=== PATIENT | female | born 1955 | race Caucasian/White ===

== ENCOUNTER 2019-09-28 02:34 | Observation (INO) ==
[2019-09-28] MEDS ORDERED: Naloxone 0.4 MG/ML INJ IVP PRN (04:35)
[2019-09-28] MEDS ORDERED: 0.9 % Sodium Chloride 1,000 ML IVC SCH (04:45)
[2019-09-28] MEDS ORDERED: *HR* Dextrose 50 % in Water (Syg) 50 ML SYRINGE IVP PRN (05:26)
[2019-09-28] MEDS ORDERED: D5% in Water 1,000 ML IVC PRN (05:26)
[2019-09-28] MEDS ORDERED: Dextrose Gel 15 GM/37.5 ML TUBE PO PRN ×2 (05:26)
[2019-09-28 07:38] LABS: Basophils % 0.5 %; Eosinophils # 0.5 K/mcL (0.0-0.6); Eosinophils % 6.2 %; Hematocrit 37.7 % (35.3-44.9); Immature Granulocytes % 0.2 % (0-4); Lymphocytes # 1.3 K/mcL (0.6-4.6); Lymphocytes % 14.8 %; Mean Corpuscular HGB Conc 31.8 g/dL (31.6-35.5); Mean Corpuscular Hemoglobin 30.8 pg (28.0-33.3); Mean Corpuscular Volume 96.7 fL (83.0-100.0); Monocytes # 0.7 K/mcL (0.0-1.3); Monocytes % 8.5 %; Neutrophils # 6.1 K/mcL (1.6-8.9); Platelet Count 103 K/mcL (140-400); Red Cell Distribution Width 13.4 % (11.5-14.5); Segmented Neutrophils % 69.8 %; White Blood Count 8.7 K/mcL (4.3-11.1)
[2019-09-28 07:44] LABS: INR 1.1; Prothrombin Time 12.6 Seconds (9.4-12.1)
[2019-09-28 07:47] LABS: Activated Partial Thrombo Time 28.9 Seconds (26.0-36.0)
[2019-09-28] MEDS ORDERED: Furosemide 40 MG/4 ML VIAL IVP ONE (07:54)
[2019-09-28] MEDS ORDERED: Furosemide 20 MG/2 ML VIAL IVP ONE (07:54)
[2019-09-28 07:59] LABS: Albumin 3.5 g/dL (3.5-5.7); Albumin/Globulin Ratio 1.2 (1.1-2.2); Bilirubin,Total 0.9 mg/dL (0.3-1.0); Calcium 8.2 mg/dL (8.6-10.3); Globulin 2.9 g/dL (2.4-3.5); Magnesium 1.8 mg/dL (1.6-2.6); Phosphorous 4.6 mg/dL (2.7-4.5); Potassium 4.7 mEq/L (3.5-5.1); Total Protein 6.4 g/dL (6.4-8.9)
[2019-09-28] MEDS ORDERED: Diltiazem CD (24hr) 120 MG CAPSULE PO SCH ×2 (09:00)
[2019-09-28] MEDS: Metoprolol XL (24 HR) Succ 50 MG TAB.ER.24H PO SCH (10:49)
[2019-09-28] MEDS: cefTRIAXone 1,000 MG in Water for inj. (sterile) 10 ML IVP SCH (10:49)
[2019-09-28] MEDS: Acetaminophen 325 MG TABLET PO PRN (10:49)
[2019-09-28] MEDS: Aspirin Enteric Coated 81 MG Tablet PO SCH (10:49)
[2019-09-28] MEDS: Nystatin POWDER 30 GM BOTTLE TP SCH ×2 (11:43→20:43)
[2019-09-28] MEDS: Insulin LISPRO 300 UNITS/3 ML VIAL SQ SCH ×2 (11:49→17:22)
[2019-09-28] MEDS: Albuterol 2.5 MG/3 ML NEBULIZER IH SCH ×5 (12:28→23:00)
[2019-09-28] MEDS: Budesonide/Formoterol 80/4.5 1 PUFF INH IH SCH ×3 (12:29→20:25)
[2019-09-28] MEDS: Tiotropium 18 MCG inhalation IH SCH (12:33)
[2019-09-28] MEDS: *HR* Heparin 5,000 UNIT/ML VIAL SQ SCH (17:26)
[2019-09-28] MEDS ORDERED: Insulin LISPRO 300 UNITS/3 ML VIAL SQ SCH (21:00)
[2019-09-29 00:47] LABS: Bilirubin,Urine Negative (Negative); Blood,Urine Negative (Negative); Clarity,Urine Cloudy (Clear); Color,Urine Yellow (Yellow); Glucose,Urine (UA) Normal (Normal); Ketones,Urine Negative (Negative); Leukocyte Esterase,Urine Small (Negative); Nitrite,Urine Negative (Negative); Protein,Urine Trace mg/dL (Neg-Trace); Specific Gravity,Urine 1.015 (1.010-1.025); Urobilinogen,Urine Normal (Normal)
[2019-09-29 00:49] LABS: Bacteria,Urine None Seen per hpf (None-Few); Hyaline Casts,Urine Few per lpf (None-Few); Squamous Epithelial Cell,Urine Many per lpf (None-Few)
[2019-09-29 01:03] LABS: Protein/Creatinine Ratio,Urine 0.52 mg/mg (0.00-0.20)
[2019-09-29 02:19] LABS: Mean Platelet Volume 13.2 fL (9.4-12.4)
[2019-09-29 02:20] LABS: Hematocrit 38.1 % (35.3-44.9); Immature Platelets 12.7 % (1.1-6.1); Mean Corpuscular HGB Conc 31.5 g/dL (31.6-35.5); Mean Corpuscular Hemoglobin 30.7 pg (28.0-33.3); Mean Corpuscular Volume 97.4 fL (83.0-100.0); Red Blood Count 3.91 M/mcL (3.82-4.97); Red Cell Distribution Width 13.5 % (11.5-14.5); White Blood Count 8.9 K/mcL (4.3-11.1)
[2019-09-29 02:45] LABS: Potassium 4.5 mEq/L (3.5-5.1)
[2019-09-29 02:46] LABS: Uric Acid 8.7 mg/dL (2.3-7.6)
[2019-09-29] MEDS: Albuterol 2.5 MG/3 ML NEBULIZER IH SCH ×4 (03:48→16:10)
[2019-09-29] MEDS: *HR* Heparin 5,000 UNIT/ML VIAL SQ SCH ×2 (05:16→18:15)
[2019-09-29] MEDS: Insulin LISPRO 300 UNITS/3 ML VIAL SQ SCH ×3 (07:26→18:15)
[2019-09-29] MEDS: Acetaminophen 325 MG TABLET PO PRN (07:28)
[2019-09-29] MEDS: Aspirin Enteric Coated 81 MG Tablet PO SCH (07:28)
[2019-09-29] MEDS: cefTRIAXone 1,000 MG in Water for inj. (sterile) 10 ML IVP SCH (07:28)
[2019-09-29] MEDS: Metoprolol XL (24 HR) Succ 50 MG TAB.ER.24H PO SCH (07:28)
[2019-09-29] MEDS: Tiotropium 18 MCG inhalation IH SCH (07:42)
[2019-09-29] MEDS: Budesonide/Formoterol 80/4.5 1 PUFF INH IH SCH (07:42)
[2019-09-29] MEDS ORDERED: Perflutren Lipid Microsphere 1.3 ML in 0.9 % Sodium Chloride 8.7 ML IVP ONE (07:43)
[2019-09-29] MEDS: Nystatin POWDER 30 GM BOTTLE TP SCH (09:57)
[2019-09-29 16:08] VITALS: BP 133/81
[2019-10-01 09:16] LABS: Kappa Qnt Free Light Chains 4.41 mg/dL (0.33-1.94); Lambda Qnt Free Light Chains 3.6 mg/dL (0.57-2.63)
[2019-10-02 02:29] LABS: Alpha 2 Globulin (PEP) 0.64 g/dL (0.48-1.05); Beta Globulin (PEP) 0.93 g/dL (0.48-1.10)
[2019-10-02 05:17] LABS: Urine Collection Volume RANDOM mL
[2019-10-02 14:15] LABS: IFE Reflexed NOT DONE
== END 2019-09-29 20:00 | disposition home health service (06) ==
LOC: 3NENU → SUATTDRO 04:32
PROVIDERS: ADMIT Family Medicine; ATTEND Internal Medicine

== ENCOUNTER 2019-12-22 17:53 | Inpatient (IN) ==
[~2019-12-22 17:53] MED LIST: cefTRIAXone 1,000 MG in Water for inj. (sterile) 10 ML IVPB SCH
[2019-12-22] MEDS ORDERED: Naloxone 0.4 MG/ML INJ IVP PRN (21:59)
[2019-12-22] MEDS: *HR* Heparin 5,000 UNIT/ML VIAL SQ SCH (22:42)
[2019-12-23] MEDS ORDERED: Albuterol 2.5 MG/3 ML NEBULIZER IH SCH
[2019-12-23 00:12] LABS: ABG Base Excess 11 mEq/L (-2 to 3); ABG HCO3 41 mEq/L (21-27); ABG Oxygen Saturation 94 % (95-98); ABG PCO2 81 mmHg (35-45); ABG PH 7.31 pH Units (7.32-7.45); ABG PO2 81 mmHg (85-104); ABG TCO2 44 mEq/L (20-26)
[2019-12-23] MEDS ORDERED: Dextrose Gel 15 GM/37.5 ML TUBE PO PRN ×2 (00:19)
[2019-12-23] MEDS: MethylPREDNISolone 40 MG/ML VIAL IVP SCH ×5 (00:48→23:13)
[2019-12-23 01:23] LABS: ABG Base Excess 9 mEq/L (-2 to 3); ABG HCO3 39 mEq/L (21-27); ABG Oxygen Saturation 93 % (95-98); ABG PCO2 84 mmHg (35-45); ABG PH 7.28 pH Units (7.32-7.45); ABG PO2 82 mmHg (85-104); ABG TCO2 42 mEq/L (20-26)
[2019-12-23 01:43] LABS: Basophils % 0.4 %; Eosinophils # 0.3 K/mcL (0.0-0.6); Eosinophils % 2.4 %; Hematocrit 41.2 % (35.3-44.9); Hemoglobin 12.5 g/dL (11.5-15.4); Immature Granulocytes % 0.3 % (0-4); Lymphocytes # 1.5 K/mcL (0.6-4.6); Lymphocytes % 13.9 %; Mean Corpuscular HGB Conc 30.3 g/dL (31.6-35.5); Mean Corpuscular Hemoglobin 30.5 pg (28.0-33.3); Mean Corpuscular Volume 100.5 fL (83.0-100.0); Mean Platelet Volume 12.7 fL (9.4-12.4); Monocytes # 1.1 K/mcL (0.0-1.3); Neutrophils # 7.7 K/mcL (1.6-8.9); Platelet Count 116 K/mcL (140-400); Red Cell Distribution Width 13.7 % (11.5-14.5); White Blood Count 10.6 K/mcL (4.3-11.1)
[2019-12-23 02:04] LABS: Albumin 3.4 g/dL (3.5-5.7); Bilirubin,Total 0.8 mg/dL (0.3-1.0); Calcium 8.9 mg/dL (8.6-10.3); Globulin 3.3 g/dL (2.4-3.5); Potassium 4.3 mEq/L (3.5-5.1); Total Protein 6.7 g/dL (6.4-8.9)
[2019-12-23 02:23] LABS: Adenovirus Not Detected (Not Detect); Bordetella Pertussis Not Detected (Not Detect); Chlamydophila pneumoniae Not Detected (Not Detect); Coronavirus 229E Not Detected (Not Detect); Coronavirus HKU1 Not Detected (Not Detect); Coronavirus NL63 Not Detected (Not Detect); Coronavirus OC43 Not Detected (Not Detect); Human Metapneumovirus Not Detected (Not Detect); Human Rhinovirus/Enterovirus Not Detected (Not Detect); Influenza A Subtype 2009 H1 Not Detected (Not Detect); Influenza B Not Detected (Not Detect); Mycoplasma pneumoniae Not Detected (Not Detect); Parainfluenza Virus 1 Not Detected (Not Detect); Parainfluenza Virus 2 Not Detected (Not Detect); Parainfluenza Virus 3 Not Detected (Not Detect); Parainfluenza Virus 4 Not Detected (Not Detect); Respiratory Syncytial Virus Not Detected (Not Detect)
[2019-12-23] MEDS ORDERED: *HR* Midazolam HCl 5 MG/5 ML VIAL IVP ONE (02:50)
[2019-12-23] MEDS: FentaNYL (PF) 1,000 MCG in 0.9 % Sodium Chloride 80 ML IVC SCH ×3 (03:00→22:30)
[2019-12-23] MEDS: Ipratropium 1 PUFF INHALER IH SCH ×7 (03:07→23:13)
[2019-12-23 05:15] LABS: ABG Base Excess 13 mEq/L (-2 to 3); ABG HCO3 37 mEq/L (21-27); ABG Oxygen Saturation 99 % (95-98); ABG PCO2 43 mmHg (35-45); ABG PH 7.54 pH Units (7.32-7.45); ABG PO2 131 mmHg (85-104); ABG TCO2 38 mEq/L (20-26); Blood Gas VT 450 cc
[2019-12-23] MEDS: *HR* Heparin 5,000 UNIT/ML VIAL SQ SCH ×3 (06:58→20:31)
[2019-12-23] MEDS: Furosemide 20 MG/2 ML VIAL IVP SCH ×2 (08:54→20:31)
[2019-12-23] MEDS: cefTRIAXone 1,000 MG in Water for inj. (sterile) 10 ML IVPB SCH (08:55)
[2019-12-23] MEDS: Insulin LISPRO 300 UNITS/3 ML VIAL SQ SCH ×5 (11:00→23:58)
[2019-12-23 11:05] LABS: ABG Base Excess 12 mEq/L (-2 to 3); ABG HCO3 38 mEq/L (21-27); ABG Oxygen Saturation 96 % (95-98); ABG PCO2 52 mmHg (35-45); ABG PH 7.47 pH Units (7.32-7.45); ABG PO2 77 mmHg (85-104); ABG TCO2 39 mEq/L (20-26)
[2019-12-23] MEDS: Azithromycin 500 MG in 0.9 % Sodium Chloride 250 ML IVPB SCH (11:14)
[2019-12-23] MEDS: Budesonide/Formoterol 160/4.5 1 PUFF INH IH SCH ×2 (11:22→20:52)
[2019-12-23] MEDS ORDERED: Famotidine 20 MG/2 ML VIAL IVP ONE (11:37)
[2019-12-23] MEDS ORDERED: Artificial Tears SOLN 15 ML BOTTLE BOTH EYES PRN (11:55)
[2019-12-23] MEDS ORDERED: Tiotropium 18 MCG inhalation IH SCH (12:00)
[2019-12-23] MEDS: Artificial Tears SOLN 15 ML BOTTLE BOTH EYES SCH ×4 (13:25→23:13)
[2019-12-23] MEDS: Famotidine 20 MG/2 ML VIAL IVP SCH (18:07)
[2019-12-23] MEDS: *HR* Dextrose 50 % in Water (Syg) 50 ML SYRINGE IVP PRN (18:20)
[2019-12-23] MEDS: Chlorhexidine Rinse 15 ML MOUTHWASH MM SCH (20:31)
[2019-12-24 03:50] LABS: ABG Base Excess 9 mEq/L (-2 to 3); ABG HCO3 38 mEq/L (21-27); ABG Oxygen Saturation 97 % (95-98); ABG PCO2 70 mmHg (35-45); ABG PH 7.34 pH Units (7.32-7.45); ABG PO2 99 mmHg (85-104); ABG TCO2 40 mEq/L (20-26); Blood Gas VT 480 cc
[2019-12-24] MEDS: Artificial Tears SOLN 15 ML BOTTLE BOTH EYES SCH ×6 (04:05→23:47)
[2019-12-24] MEDS: Ipratropium 1 PUFF INHALER IH SCH ×6 (04:06→23:23)
[2019-12-24 04:31] LABS: Calcium 8.7 mg/dL (8.6-10.3); Potassium 3.3 mEq/L (3.5-5.1)
[2019-12-24] MEDS: *HR* Heparin 5,000 UNIT/ML VIAL SQ SCH ×3 (05:33→20:36)
[2019-12-24] MEDS: MethylPREDNISolone 40 MG/ML VIAL IVP SCH ×3 (05:33→17:05)
[2019-12-24] MEDS: Famotidine 20 MG/2 ML VIAL IVP SCH ×2 (05:33→17:05)
[2019-12-24] MEDS: Insulin LISPRO 300 UNITS/3 ML VIAL SQ SCH ×4 (06:12→23:50)
[2019-12-24 06:21] LABS: Red Cell Distribution Width 13.6 % (11.5-14.5)
[2019-12-24 06:23] LABS: Hematocrit 41.5 % (35.3-44.9); Hemoglobin 13.3 g/dL (11.5-15.4); Immature Platelets 17.8 % (1.1-6.1); Mean Corpuscular Volume 93.5 fL (83.0-100.0); Mean Platelet Volume 13.7 fL (9.4-12.4); Red Blood Count 4.44 M/mcL (3.82-4.97); White Blood Count 11.2 K/mcL (4.3-11.1)
[2019-12-24] MEDS: Azithromycin 500 MG in 0.9 % Sodium Chloride 250 ML IVPB SCH (09:21)
[2019-12-24] MEDS: cefTRIAXone 1,000 MG in Water for inj. (sterile) 10 ML IVPB SCH (09:22)
[2019-12-24] MEDS: Chlorhexidine Rinse 15 ML MOUTHWASH MM SCH ×2 (09:23→20:36)
[2019-12-24] MEDS: Budesonide/Formoterol 160/4.5 1 PUFF INH IH SCH ×2 (09:25→19:51)
[2019-12-24] MEDS: D5% in Water 1,000 ML IVC PRN (11:55)
[2019-12-24] MEDS: *HR* Dextrose 50 % in Water (Syg) 50 ML SYRINGE IVP PRN (12:01)
[2019-12-24] MEDS: FentaNYL (PF) 1,000 MCG in 0.9 % Sodium Chloride 80 ML IVC SCH (12:20)
[2019-12-24] MEDS ORDERED: Potassium Phosphate 44 MEQ in 0.9 % Sodium Chloride 250 ML IVPB PRN (15:51)
[2019-12-24 17:05] LABS: VBG Ionized Calcium 0.99 mmol/L (1.15-1.35)
[2019-12-24 17:21] LABS: Calcium 8.4 mg/dL (8.6-10.3); Magnesium 1.5 mg/dL (1.6-2.6); Phosphorous 4.1 mg/dL (2.7-4.5); Potassium 3.1 mEq/L (3.5-5.1)
[2019-12-24] MEDS: Dexmedetomidine HCl 400 MCG/100 ML MLS IVC SCH (17:30)
[2019-12-24] MEDS: Calcium Gluconate 1gm/50mL 1 GM/50 ML BAG IVPB PRN (18:03)
[2019-12-25] MEDS: D5% in Water 1,000 ML IVC PRN (01:54)
[2019-12-25] MEDS: Artificial Tears SOLN 15 ML BOTTLE BOTH EYES SCH ×3 (03:36→12:27)
[2019-12-25] MEDS: Ipratropium 1 PUFF INHALER IH SCH ×6 (03:37→23:36)
[2019-12-25] MEDS: FentaNYL (PF) 1,000 MCG in 0.9 % Sodium Chloride 80 ML IVC SCH (03:37)
[2019-12-25 04:30] LABS: Red Cell Distribution Width 13.5 % (11.5-14.5)
[2019-12-25 04:31] LABS: VBG Ionized Calcium 0.99 mmol/L (1.15-1.35)
[2019-12-25 04:31] LABS: Hematocrit 39.9 % (35.3-44.9); Hemoglobin 12.7 g/dL (11.5-15.4); Immature Platelets 19.3 % (1.1-6.1); Mean Corpuscular HGB Conc 31.8 g/dL (31.6-35.5); Mean Corpuscular Hemoglobin 29.6 pg (28.0-33.3); Mean Platelet Volume 13.2 fL (9.4-12.4); Red Blood Count 4.29 M/mcL (3.82-4.97); White Blood Count 11.9 K/mcL (4.3-11.1)
[2019-12-25 04:48] LABS: ABG Base Excess 11 mEq/L (-2 to 3); ABG HCO3 38 mEq/L (21-27); ABG Oxygen Saturation 93 % (95-98); ABG PCO2 57 mmHg (35-45); ABG PH 7.43 pH Units (7.32-7.45); ABG PO2 69 mmHg (85-104); ABG TCO2 39 mEq/L (20-26); Blood Gas Modality AF; Blood Gas VT 480 cc
[2019-12-25 04:49] LABS: Calcium 8.4 mg/dL (8.6-10.3); Phosphorous 4.1 mg/dL (2.7-4.5); Potassium 3.2 mEq/L (3.5-5.1)
[2019-12-25] MEDS: Calcium Gluconate 1gm/50mL 1 GM/50 ML BAG IVPB PRN ×4 (05:03→23:47)
[2019-12-25] MEDS: *HR* Heparin 5,000 UNIT/ML VIAL SQ SCH ×3 (05:17→21:07)
[2019-12-25] MEDS: Insulin LISPRO 300 UNITS/3 ML VIAL SQ SCH ×3 (05:17→21:08)
[2019-12-25] MEDS: MethylPREDNISolone 40 MG/ML VIAL IVP SCH ×4 (05:17→17:45)
[2019-12-25] MEDS: Famotidine 20 MG/2 ML VIAL IVP SCH ×2 (05:17→17:45)
[2019-12-25] MEDS: Dexmedetomidine HCl 400 MCG/100 ML MLS IVC SCH ×5 (06:11→21:35)
[2019-12-25] MEDS: Budesonide/Formoterol 160/4.5 1 PUFF INH IH SCH ×2 (07:28→20:55)
[2019-12-25] MEDS ORDERED: Haloperidol Lactate 5 MG/ML VIAL IVP ONE ×2 (08:51→08:52)
[2019-12-25] MEDS ORDERED: Haloperidol Lactate 5 MG/ML VIAL ONE (08:53)
[2019-12-25] MEDS: cefTRIAXone 1,000 MG in Water for inj. (sterile) 10 ML IVPB SCH (09:10)
[2019-12-25] MEDS: Azithromycin 500 MG in 0.9 % Sodium Chloride 250 ML IVPB SCH (09:14)
[2019-12-25] MEDS: Metoprolol XL (24 HR) Succ 50 MG TAB.ER.24H PO SCH (09:22)
[2019-12-25] MEDS: Chlorhexidine Rinse 15 ML MOUTHWASH MM SCH (09:26)
[2019-12-25] MEDS: Fluticasone Propionate Nasal 50 MCG/SPRAY BOTTLE NS SCH (09:28)
[2019-12-25] MEDS ORDERED: *HR* Etomidate 20 MG/10 ML AMPUL IVP ONE (10:10)
[2019-12-25] MEDS ORDERED: *HR* Midazolam HCl 5 MG/5 ML VIAL IVP ONE (10:10)
[2019-12-25] MEDS ORDERED: *HR* Succinylcholine 200 MG/10 ML VIAL IVP ONE (10:10)
[2019-12-25 10:51] LABS: VBG Ionized Calcium 0.99 mmol/L (1.15-1.35)
[2019-12-25] MEDS ORDERED: Nitroglycerin 0.4 MG TAB.SUBL SL PRN (11:57)
[2019-12-25] MEDS ORDERED: QUEtiapine Fumarate 25 MG TABLET PO ONE (13:00)
[2019-12-25] MEDS ORDERED: *HR* LORazepam 2 MG/ML VIAL IVP ONE (13:39)
[2019-12-25] MEDS ORDERED: *HR* LORazepam 2 MG/ML VIAL ONE (13:40)
[2019-12-25] MEDS: *HR* LORazepam 2 MG/ML VIAL IVP ONE (13:47)
[2019-12-25 16:54] LABS: VBG Ionized Calcium 1.07 mmol/L (1.15-1.35)
[2019-12-25 22:20] LABS: BUN/Creatinine Ratio 21 (6-26); Blood Urea Nitrogen 21 mg/dL (8-23); Carbon Dioxide 33 mEq/L (23-29); Chloride 96 mEq/L (98-107); Glucose 141 mg/dL (70-105); Osmolality,Calculated 289 (280-300); Potassium 4.2 mEq/L (3.5-5.1); Sodium 137 mEq/L (136-145); eGFR For African Americans > 60 (> 60); eGFR For Non-African Americans 55 (> 60)
[2019-12-26] MEDS: Dexmedetomidine HCl 400 MCG/100 ML MLS IVC SCH ×7 (00:49→20:49)
[2019-12-26] MEDS: Ipratropium 1 PUFF INHALER IH SCH ×6 (03:31→23:54)
[2019-12-26] MEDS: *HR* Heparin 5,000 UNIT/ML VIAL SQ SCH ×3 (05:18→20:49)
[2019-12-26] MEDS: Famotidine 20 MG/2 ML VIAL IVP SCH (05:19)
[2019-12-26] MEDS: MethylPREDNISolone 40 MG/ML VIAL IVP SCH ×2 (05:19→17:40)
[2019-12-26 07:17] LABS: VBG Ionized Calcium 1.14 mmol/L (1.15-1.35)
[2019-12-26 07:19] LABS: Hemoglobin 13.6 g/dL (11.5-15.4); Red Cell Distribution Width 13.6 % (11.5-14.5)
[2019-12-26 07:21] LABS: Hematocrit 42.5 % (35.3-44.9); Immature Platelets 17.1 % (1.1-6.1); Mean Corpuscular Hemoglobin 29.7 pg (28.0-33.3); Mean Corpuscular Volume 92.8 fL (83.0-100.0); Mean Platelet Volume 12.9 fL (9.4-12.4); Red Blood Count 4.58 M/mcL (3.82-4.97); White Blood Count 10.6 K/mcL (4.3-11.1)
[2019-12-26 07:32] LABS: BUN/Creatinine Ratio 24 (6-26); Blood Urea Nitrogen 23 mg/dL (8-23); Calcium 9.1 mg/dL (8.6-10.3); Carbon Dioxide 35 mEq/L (23-29); Chloride 98 mEq/L (98-107); Glucose 155 mg/dL (70-105); Osmolality,Calculated 295 (280-300); Potassium 4.1 mEq/L (3.5-5.1); Sodium 139 mEq/L (136-145); eGFR For African Americans > 60 (> 60); eGFR For Non-African Americans 58 (> 60)
[2019-12-26] MEDS: Insulin LISPRO 300 UNITS/3 ML VIAL SQ SCH ×4 (07:48→20:35)
[2019-12-26] MEDS ORDERED: *HR* LORazepam 2 MG/ML VIAL ONE (08:08)
[2019-12-26] MEDS: *HR* LORazepam 2 MG/ML VIAL IVP ONE (08:10)
[2019-12-26] MEDS: Budesonide/Formoterol 160/4.5 1 PUFF INH IH SCH ×2 (08:11→20:00)
[2019-12-26] MEDS: cefTRIAXone 1,000 MG in Water for inj. (sterile) 10 ML IVPB SCH (08:48)
[2019-12-26] MEDS: Azithromycin 500 MG in 0.9 % Sodium Chloride 250 ML IVPB SCH (09:01)
[2019-12-26] MEDS: Metoprolol XL (24 HR) Succ 50 MG TAB.ER.24H PO SCH (09:12)
[2019-12-26] MEDS: DilTIAZem CD (24hr) 120 MG CAP.ER.24H PO SCH (09:12)
[2019-12-26] MEDS: Fluticasone Propionate Nasal 50 MCG/SPRAY BOTTLE NS SCH (09:12)
[2019-12-26 10:56] LABS: ABG Base Excess 7 mEq/L (-2 to 3); ABG HCO3 36 mEq/L (21-27); ABG Oxygen Saturation 95 % (95-98); ABG PCO2 67 mmHg (35-45); ABG PH 7.34 pH Units (7.32-7.45); ABG PO2 83 mmHg (85-104); ABG TCO2 38 mEq/L (20-26)
[2019-12-26] MEDS ORDERED: haloperidoL 1 MG TABLET PO PRN (14:20)
[2019-12-26 16:23] LABS: BUN/Creatinine Ratio 25 (6-26); Blood Urea Nitrogen 25 mg/dL (8-23); Calcium 8.9 mg/dL (8.6-10.3); Carbon Dioxide 34 mEq/L (23-29); Chloride 99 mEq/L (98-107); Glucose 144 mg/dL (70-105); Osmolality,Calculated 293 (280-300); Potassium 4.5 mEq/L (3.5-5.1); Sodium 138 mEq/L (136-145); eGFR For African Americans > 60 (> 60); eGFR For Non-African Americans 55 (> 60)
[2019-12-26] MEDS: Haloperidol Lactate 5 MG/ML VIAL IVP PRN (21:14)
[2019-12-26] MEDS ORDERED: Haloperidol Lactate 5 MG/ML VIAL IVP ONE (22:49)
[2019-12-27] MEDS: Ipratropium 1 PUFF INHALER IH SCH ×6 (04:02→23:39)
[2019-12-27] MEDS: Dexmedetomidine HCl 400 MCG/100 ML MLS IVC SCH ×2 (04:06)
[2019-12-27 06:22] LABS: Hematocrit 47.7 % (35.3-44.9); Immature Platelets 17.6 % (1.1-6.1); Mean Corpuscular HGB Conc 31.4 g/dL (31.6-35.5); Mean Corpuscular Hemoglobin 29.8 pg (28.0-33.3); Mean Corpuscular Volume 94.8 fL (83.0-100.0); Mean Platelet Volume 13.2 fL (9.4-12.4); Red Blood Count 5.03 M/mcL (3.82-4.97); Red Cell Distribution Width 13.7 % (11.5-14.5); White Blood Count 8.7 K/mcL (4.3-11.1)
[2019-12-27] MEDS: MethylPREDNISolone 40 MG/ML VIAL IVP SCH (06:28)
[2019-12-27] MEDS: *HR* Heparin 5,000 UNIT/ML VIAL SQ SCH ×3 (06:28→21:45)
[2019-12-27 06:42] LABS: BUN/Creatinine Ratio 28 (6-26); Blood Urea Nitrogen 27 mg/dL (8-23); Carbon Dioxide 32 mEq/L (23-29); Chloride 98 mEq/L (98-107); Glucose 124 mg/dL (70-105); Osmolality,Calculated 289 (280-300); Potassium 4.1 mEq/L (3.5-5.1); Sodium 136 mEq/L (136-145); eGFR For African Americans > 60 (> 60); eGFR For Non-African Americans 58 (> 60)
[2019-12-27] MEDS: Budesonide/Formoterol 160/4.5 1 PUFF INH IH SCH ×3 (07:35→20:33)
[2019-12-27] MEDS: Haloperidol Lactate 5 MG/ML VIAL IVP PRN (07:58)
[2019-12-27] MEDS ORDERED: predniSONE 20 MG TABLET PO SCH (09:00)
[2019-12-27] MEDS: Insulin LISPRO 300 UNITS/3 ML VIAL SQ SCH ×4 (09:18→21:46)
[2019-12-27] MEDS: Metoprolol XL (24 HR) Succ 50 MG TAB.ER.24H PO SCH (09:18)
[2019-12-27] MEDS: DilTIAZem CD (24hr) 120 MG CAP.ER.24H PO SCH (09:19)
[2019-12-27] MEDS: Fluticasone Propionate Nasal 50 MCG/SPRAY BOTTLE NS SCH (09:20)
[2019-12-27] MEDS: cefTRIAXone 1,000 MG in Water for inj. (sterile) 10 ML IVPB SCH (09:28)
[2019-12-27] MEDS: Azithromycin 500 MG in 0.9 % Sodium Chloride 250 ML IVPB SCH (09:34)
[2019-12-27] MEDS ORDERED: cefTRIAXone 1,000 MG in Water for inj. (sterile) 10 ML IVP SCH (09:45)
[2019-12-27] MEDS ORDERED: *HR* Dextrose 50 % in Water (Syg) 50 ML SYRINGE IVP PRN (09:54)
[2019-12-27] MEDS ORDERED: D5% in Water 1,000 ML IVC PRN (09:54)
[2019-12-27] MEDS ORDERED: Nitroglycerin 0.4 MG TAB.SUBL SL PRN (09:54)
[2019-12-27] MEDS ORDERED: Haloperidol Lactate 5 MG/ML VIAL IVP PRN (09:54)
[2019-12-27] MEDS ORDERED: Naloxone 0.4 MG/ML INJ IVP PRN (09:54)
[2019-12-27] MEDS ORDERED: Dextrose Gel 15 GM/37.5 ML TUBE PO PRN ×2 (09:54)
[2019-12-27] MEDS ORDERED: haloperidoL 1 MG TABLET PO SCH (21:00)
[2019-12-27] MEDS: haloperidoL 1 MG TABLET PO PRN (21:45)
[2019-12-28 02:08] LABS: Hematocrit 43.2 % (35.3-44.9); Hemoglobin 13.3 g/dL (11.5-15.4); Immature Platelets 15.9 % (1.1-6.1); Mean Corpuscular HGB Conc 30.8 g/dL (31.6-35.5); Mean Corpuscular Hemoglobin 29.7 pg (28.0-33.3); Mean Corpuscular Volume 96.4 fL (83.0-100.0); Mean Platelet Volume 13.5 fL (9.4-12.4); Red Blood Count 4.48 M/mcL (3.82-4.97); Red Cell Distribution Width 14.1 % (11.5-14.5); White Blood Count 13.5 K/mcL (4.3-11.1)
[2019-12-28 02:25] LABS: BUN/Creatinine Ratio 31 (6-26); Blood Urea Nitrogen 32 mg/dL (8-23); Carbon Dioxide 35 mEq/L (23-29); Chloride 102 mEq/L (98-107); Glucose 108 mg/dL (70-105); Osmolality,Calculated 299 (280-300); Potassium 3.6 mEq/L (3.5-5.1); Sodium 141 mEq/L (136-145); eGFR For African Americans > 60 (> 60); eGFR For Non-African Americans 54 (> 60)
[2019-12-28] MEDS: Ipratropium 1 PUFF INHALER IH SCH ×6 (03:47→23:57)
[2019-12-28] MEDS: *HR* Heparin 5,000 UNIT/ML VIAL SQ SCH ×3 (05:51→20:22)
[2019-12-28] MEDS: Acetaminophen 325 MG TABLET PO PRN ×2 (05:51→16:43)
[2019-12-28] MEDS: Budesonide/Formoterol 160/4.5 1 PUFF INH IH SCH ×2 (07:33→19:52)
[2019-12-28] MEDS: Metoprolol XL (24 HR) Succ 50 MG TAB.ER.24H PO SCH (08:29)
[2019-12-28] MEDS: predniSONE 20 MG TABLET PO SCH (08:30)
[2019-12-28] MEDS: DilTIAZem CD (24hr) 120 MG CAP.ER.24H PO SCH (08:30)
[2019-12-28] MEDS: haloperidoL 1 MG TABLET PO PRN (08:30)
[2019-12-28] MEDS: Insulin LISPRO 300 UNITS/3 ML VIAL SQ SCH ×4 (08:33→20:22)
[2019-12-28] MEDS ORDERED: Azithromycin 500 MG in 0.9 % Sodium Chloride 250 ML IVPB SCH (09:00)
[2019-12-28] MEDS: cefTRIAXone 1,000 MG in Water for inj. (sterile) 10 ML IVP SCH (09:13)
[2019-12-28] MEDS: Fluticasone Propionate Nasal 50 MCG/SPRAY BOTTLE NS SCH (09:16)
[2019-12-29] MEDS: Ipratropium 1 PUFF INHALER IH SCH ×6 (03:32→23:32)
[2019-12-29] MEDS: *HR* Heparin 5,000 UNIT/ML VIAL SQ SCH ×3 (06:14→20:32)
[2019-12-29] MEDS: Budesonide/Formoterol 160/4.5 1 PUFF INH IH SCH ×2 (07:30→20:17)
[2019-12-29] MEDS: DilTIAZem CD (24hr) 120 MG CAP.ER.24H PO SCH (09:18)
[2019-12-29] MEDS: Insulin LISPRO 300 UNITS/3 ML VIAL SQ SCH ×4 (09:18→20:58)
[2019-12-29] MEDS: Metoprolol XL (24 HR) Succ 50 MG TAB.ER.24H PO SCH (09:18)
[2019-12-29] MEDS: predniSONE 20 MG TABLET PO SCH (09:18)
[2019-12-29] MEDS: Fluticasone Propionate Nasal 50 MCG/SPRAY BOTTLE NS SCH (09:21)
[2019-12-29] MEDS: cefTRIAXone 1,000 MG in Water for inj. (sterile) 10 ML IVP SCH (10:30)
[2019-12-29] MEDS: Cefdinir 300 MG CAPSULE PO SCH ×2 (14:11→20:32)
[2019-12-30] MEDS: Ipratropium 1 PUFF INHALER IH SCH ×6 (03:35→23:20)
[2019-12-30] MEDS: *HR* Heparin 5,000 UNIT/ML VIAL SQ SCH ×3 (06:27→21:09)
[2019-12-30] MEDS: Insulin LISPRO 300 UNITS/3 ML VIAL SQ SCH ×4 (07:33→21:17)
[2019-12-30] MEDS: Budesonide/Formoterol 160/4.5 1 PUFF INH IH SCH ×2 (07:41→19:42)
[2019-12-30] MEDS: Metoprolol XL (24 HR) Succ 50 MG TAB.ER.24H PO SCH (08:52)
[2019-12-30] MEDS: Cefdinir 300 MG CAPSULE PO SCH ×2 (08:52→21:10)
[2019-12-30] MEDS: predniSONE 20 MG TABLET PO SCH (08:53)
[2019-12-30] MEDS: Fluticasone Propionate Nasal 50 MCG/SPRAY BOTTLE NS SCH (08:53)
[2019-12-30] MEDS: DilTIAZem CD (24hr) 120 MG CAP.ER.24H PO SCH (08:53)
[2019-12-31] MEDS: Ipratropium 1 PUFF INHALER IH SCH ×4 (03:31→15:13)
[2019-12-31] MEDS: *HR* Heparin 5,000 UNIT/ML VIAL SQ SCH ×2 (05:14→12:49)
[2019-12-31] MEDS: Budesonide/Formoterol 160/4.5 1 PUFF INH IH SCH (07:35)
[2019-12-31] MEDS: Insulin LISPRO 300 UNITS/3 ML VIAL SQ SCH ×2 (08:57→12:44)
[2019-12-31] MEDS: Metoprolol XL (24 HR) Succ 50 MG TAB.ER.24H PO SCH (09:00)
[2019-12-31] MEDS: predniSONE 20 MG TABLET PO SCH (09:00)
[2019-12-31] MEDS: Cefdinir 300 MG CAPSULE PO SCH (09:00)
[2019-12-31] MEDS: DilTIAZem CD (24hr) 120 MG CAP.ER.24H PO SCH (09:00)
[2019-12-31] MEDS: Fluticasone Propionate Nasal 50 MCG/SPRAY BOTTLE NS SCH (09:01)
[2019-12-31 12:36] VITALS: BP 144/83
== END 2019-12-31 15:39 | disposition home health service (06) | DRG 871 ==
LOC: 2NNU → SUATTDRO 12-23 09:56 → ICNU 12-24 17:26 → 2ANU 12-27 12:24
PROVIDERS: ADMIT Family Medicine; ATTEND Family Medicine